=== PATIENT | male | born 1980 | race American Indian/Alaskan Native ===

== ENCOUNTER 2017-01-31 13:34 | Emergency (ER) | payer SELFPAY ==
[2017-01-31 14:54] VITALS: BP 177/102
[2017-01-31] MEDS ORDERED: XYLOCAINE 1% MPF 5 mL INFILTRATI ONE (15:13)
[2017-01-31] MEDS ORDERED: ROCEPHIN IM ONE (15:13)
--- NOTE | 2017-01-31 15:14 | Emergency Department Report ---
ED Medical Clearance HPI - General Chief complaint: Medical Clearance Stated complaint: TESTING FOR MENGINTITIS Time Seen by Provider: 01/31/17 15:09 Source: patient Mode of arrival: Ambulatory - History of Present Illness Initial comments: 36-year-old male with past medical history none presents sent by ED staff for prophylaxis against possible bacterial meningitis exposure. There is currently a patient in the ED who is being treated for bacterial meningitis and Mr. Maldonado may have been an vicinity of this patient's room. Nursing staff is directing patient's to be triaged and offered prophylaxis for bacterial meningitis. This patient is awake alert and oriented 3 he understands the clinical scenario and I informed him that the [facility] department has communicated with Dr. Londono and the current recommendations are to not prophylaxis unless he came in to bodily contact with bodily fluids of this sick patient or to offer him treatment. Patient states he is interested in prophylactic treatment. I offered him 2 days of rifampin, 1 dose of Cipro orally 1 dose of IM ceftriaxone and patient elected 1 dose of IM ceftriaxone Complaint: medical clearance request Allergies/Adverse reactions: Allergies Allergy/AdvReac Type Severity Reaction Status Date / Time No Known Allergies Allergy Verified 01/31/17 14:54 ED Review of Systems ROS: Stated complaint: TESTING FOR MENGINTITIS Other details as noted in HPI Constitutional: denies: chills, fever Eyes: denies: eye pain, eye discharge, vision change ENT: denies: ear pain, throat pain Respiratory: denies: cough, shortness of breath, wheezing Cardiovascular: denies: chest pain, palpitations Endocrine: no symptoms reported Gastrointestinal: denies: abdominal pain, nausea, diarrhea Genitourinary: denies: urgency, dysuria Musculoskeletal: denies: back pain, joint swelling, arthralgia Skin: denies: rash, lesions Neurological: denies: headache, weakness, paresthesias Psychiatric: denies: anxiety, depression Hematological/Lymphatic: denies: easy bleeding, easy bruising ED Past Medical Hx - Past Medical History Previous Medical History?: No - Surgical History Past Surgical History?: No ED Physical Exam - General Limitations: No Limitations General appearance: alert, in no apparent distress - Head Head exam: Present: atraumatic, normocephalic - Eye Eye exam: Present: normal appearance, PERRL, EOMI - ENT ENT exam: Present: mucous membranes moist - Neck Neck exam: Present: normal inspection - Respiratory Respiratory exam: Present: normal lung sounds bilaterally. Absent: respiratory distress - Cardiovascular Cardiovascular Exam: Present: regular rate, normal rhythm. Absent: systolic murmur, diastolic murmur, rubs, gallop - GI/Abdominal GI/Abdominal exam: Present: soft, normal bowel sounds - Rectal Rectal exam: Present: deferred - Extremities Exam Extremities exam: Present: normal inspection - Back Exam Back exam: Present: normal inspection - Neurological Exam Neurological exam: Present: alert, oriented X3 - Psychiatric Psychiatric exam: Present: normal affect, normal mood - Skin Skin exam: Present: warm, dry, intact, normal color. Absent: rash ED Course Vital Signs 01/31/17 14:53 Temperature 97.9 F Pulse Rate 80 Respiratory 16 Rate Blood Pressure 177/102 O2 Sat by Pulse 99 Oximetry ED Medical Decision Making - Medical Decision Making A/P: Prophylaxis against bacterial meningitis 1-patient educated on subject and given CDC guideline recommendations on prophylaxis for bacterial meningitis 2-1 dose of IM 20 and 50 mg ceftriaxone given as acceptable regimen for prophylaxis as per CDC guidelines https://www.cdc.gov/mmwr/preview/mmwrhtml/ 38191100.htm 3-I advised patient to follow up with his primary doctor ED Disposition Clinical Impression: Need for prophylactic antibiotic Disposition: DC-01 TO HOME OR SELFCARE Is pt being admited?: No Does the pt Need Aspirin: No Condition: Stable Instructions: Postexposure Prophylaxis (ED) Referrals: GERDA SMALL MD [Staff Physician] - 3-5 Days Forms: Work/School Release Form(ED) Time of Disposition: 15:13
== END 2017-01-31 15:45 | disposition home or self-care (01) ==
LOC: ED 13:34
DX: Z29.8 Encounter for other specified prophylactic measures (principal)
CPT/HCPCS: 96372; 99282; J0696